=== PATIENT | female | born 1940 | race Caucasian/White ===

== ENCOUNTER → 2016-09-20 | Outpatient (CLI) | payer OTHER | LOC: FIMAGING 13:14 | DX: Z12.31 Encounter for screening mammogram for malignant neoplasm of breast (principal); Z85.3 Personal history of malignant neoplasm of breast; Z92.3 Personal history of irradiation | CPT/HCPCS: G0202 ==

== ENCOUNTER → 2017-02-25 | Outpatient (CLI) | payer OTHER | LOC: BMCIMAGING 11:12 | PROVIDERS: ATTEND Internal Medicine Hematology & Oncology | DX: Z13.820 Encounter for screening for osteoporosis (principal); C50.412 Malignant neoplasm of upper-outer quadrant of left female breast; Z17.0 Estrogen receptor positive status [ER+] ==

== ENCOUNTER → 2017-02-28 | Outpatient (CLI) | payer OTHER | LOC: BMCIMAGING 07:15 | PROVIDERS: ATTEND Internal Medicine | DX: K80.20 Calculus of gallbladder without cholecystitis without obstruction (principal); K76.0 Fatty (change of) liver, not elsewhere classified; R16.0 Hepatomegaly, not elsewhere classified; N28.1 Cyst of kidney, acquired ==

== ENCOUNTER 2017-06-30 11:09 | Emergency (ER) | payer OTHER ==
[2017-06-30 11:25] VITALS: RESP 16
--- NOTE | 2017-06-30 12:40 | EDPHY ---
H & P Stated Complaint: neck pain Time Seen by Provider: 06/30/17 12:40 Source: Patient Exam Limitations: No limitations - Personal History Current Tetanus Diphtheria and Acellular Pertussis (TDAP): Yes - Medical/Surgical History Hx Asthma: No Hx Chronic Respiratory Disease: No Hx Diabetes: No Hx Cardiac Disease: No Hx Renal Disease: No Hx Cirrhosis: No Hx Alcoholism: No Hx HIV/AIDS: No Hx Splenectomy or Spleen Trauma: No Other PMH: multiple neck surgeries, L br ca, rotator cuff surgery, cataracts, hyst - Social History Smoking Status: Former smoker Constitutional: Initial Vital Signs Temperature (C) 37 C 06/30/17 11:20 Heart Rate 82 06/30/17 11:20 Respiratory Rate 16 06/30/17 11:20 Blood Pressure 155/72 H 06/30/17 11:20 O2 Sat (%) 92 06/30/17 11:20 O2 Delivery Mode Room Air Allergies/Adverse Reactions: erythromycin base [Erythromycin Base] Allergy (Intermediate, Verified 02/28/11 10:36) Hives MINT Allergy (Intermediate, Uncoded 02/28/11 10:36) Hives VINEGAR Allergy (Intermediate, Uncoded 02/28/11 10:42) Hives WINE Allergy (Intermediate, Uncoded 02/28/11 10:36) Hives Home Medications: Medication Instructions Recorded methylPREDNISolone [Medrol Dose 1 each PO AD #1 ea 06/30/17 Denzel] oxyCODONE IR [Oxycodone Ir (*)] 5 - 10 mg PO Q6 PRN #20 tab 06/30/17 Medical Decision Making - Diagnostics Imaging: Discussed imaging studies w/ scallop shucker Radiologist ED Course/Re-evaluation: CHIEF COMPLAINT: Neck pain HISTORY OF PRESENT ILLNESS: The patient is a 77-year-old female with prior neck surgery 5-[address] Wild. She presents today with acute neck pain after coughing violently. The patient had influenza a few days ago with a cough. After coughing yesterday she developed severe neck pain. She is unable to move her head from side to side due to the pain. Her pain radiates into her shoulder. She denies upper or lower extremity paresthesia. REVIEW OF SYSTEMS: A 10 point review of systems was performed and is negative with the exception of the elements mentioned in the history of present illness. PHYSICAL EXAM: HR, BP, O2 Sat, RR. Temp noted General Appearance: Alert, well hydrated, appropriate, and non-toxic appearing. Head: Atraumatic without scalp tenderness or obvious injury Eyes: Pupils equal, round, reactive to light and accommodation, EOMI, no trauma , no injection. Ears: Clear bilaterally, no perforation, normal landmarks Nose: Atraumatic, no rhinorrhea, clear. Throat: There is no erythema or exudates, no lesions, normal tonsils, mucus membranes moist. Neck: Soft tissue tenderness, no radiculopathy. Respiratory: No retractions, no distress, no wheezes, and no accessory muscle use. Lungs are clear to auscultation bilaterally. Cardiovascular: Regular rate and rhythm, no murmurs, rubs, or gallops. Bilateral carotid, radial, dorsalis pedis, and posterior tibial pulses intact. Good capillary refill all extremities. Gastrointestinal: Abdomen is soft, nontender, non-distended, no masses, no rebound, no guarding, no peritoneal signs. Musculoskeletal: Normal active ROM of all extremities, atraumatic. Neurological: Alert, appropriate, and interactive. The patient has normal DTRs and non-focal cranial nerves, motor, sensory, and cerebellar exam. Skin: No rashes, good turgor, no nodules on palpation. Past medical history: Denies. Past surgical history: Cervical fusions, Hysterectomy Family history: Noncontributory. Social history: . at bedside. DIAGNOSTICS/PROCEDURES/CRITICAL CARE TIME: MRI cervical spine is normal per the radiologist report. Please see imaging section for full report. DIFFERENTIAL DIAGNOSIS: The differential diagnosis for the patient's neck pain included but was not limited to musculo-skeletal pain, herniated disk, spinal fracture, trauma. MEDICAL DECISION MAKING: Patient with history of neck surgery 5-6 years ago presents with acute neck pain that developed after coughing. The patient has severe neck pain that is worse with movement. She has radiation into her scapula. No radiculopathy. Plan for MRI with contrast because of prior neck surgery. The patient's MRI is negative. Her pain is likely musculoskeletal vs neurological. I recommend the patient follow up with her neurosurgeon, Dr. Wild. Plan to discharge the patient home with Oxycodone for severe pain and Medrol dose pain to help with inflammation. Departure - Departure Disposition: Home, Routine, Self-Care Clinical Impression: Musculoskeletal neck pain Condition: Good Instructions: Acute Neck Pain (ED) Additional Instructions: Take pain medication as directed for severe pain. Take the Medrol dose pack as directed. I recommend you follow up with your neurosurgeon if pain persists. Referrals: Diann Glass MD [Primary Care Provider] - As per Instructions Guy De La Paz MD [Medical Doctor] - As per Instructions (Neurolsurgeon) Prescriptions: methylPREDNISolone [Medrol Dose Denzel] 1 each PO AD #1 ea oxyCODONE IR [Oxycodone Ir (*)] 5 - 10 mg PO Q6 PRN #20 tab PRN Reason: Pain, Severe Report Scribed for: Rod Choi Report Scribed by: Dee Dee Jeong Date of Report: 06/30/17 Time of Report: 14:48
[2017-06-30] MEDS ORDERED: GADOBUTROL 10 ML VIAL IVP ONE (13:24)
[2017-06-30] MEDS ORDERED: OXYCODONE/APAP 5/325 TAB PO ONE (14:56)
[2017-06-30] MEDS ORDERED: OXYCODONE/APAP 5/325 TAB ONE (14:56)
[2017-06-30 15:05] VITALS: BP 131/67; PULSE 74; TEMP 98.4; O2SAT 90
== END 2017-06-30 15:04 | disposition home or self-care (01) ==
DX: M54.2 Cervicalgia (principal); Z87.891 Personal history of nicotine dependence
CPT/HCPCS: 72156; 99285; A9585

== ENCOUNTER 2017-07-11 17:24 | Emergency (ER) | payer OTHER ==
[2017-07-11 17:37] VITALS: TEMP 97.9; O2SAT 92
--- NOTE | 2017-07-11 18:21 | EDPHY ---
H & P Time Seen by Provider: 07/11/17 18:02 HPI/ROS: CHIEF COMPLAINT: Right groin pain HISTORY OF PRESENT ILLNESS: Patient got the flu in June 21 and was seen here on June 30 with a continued cough and some neck pain. She was treated with steroids after negative MRI was having trouble moving and really trying to twist and pulled herself out of bed. Starting on this past week on Saturday she started developing pain in her right groin which is not present at rest but is severe any time she tries to lift up her leg or flex her hip. When that happened she has pain in the proximal thigh radiating into her suprapubic region. This is not associated with urinary symptoms or vomiting or diarrhea. No skin rash. Really not present at rest but severe with trying to flex her hip. REVIEW OF SYSTEMS: Eye: no change in vision ENT: no sore throat Cardiac: no chest pain or syncope Pulmonary: no cough or SOB Abdomen: no vomiting, diarrhea, abdominal pain Musculoskeletal: HPI Skin: no rash Neuro: No weakness or numbness in foot or ankle. Constitutional: no fever : no urinary symptoms A comprehensive 10 point review of systems is otherwise negative aside from elements mentioned in the history of present illness. PAST MEDICAL HISTORY: Includes cervical and lumbar spine surgeries, breast cancer, rotator cuff surgery, hysterectomy Social history: here with spouse lives independently General Appearance: Alert and conversant, cooperative. Eyes: No scleral icterus. ENT, Mouth: Normal mucous membranes. Respiratory: Normal respiratory effort, breath sounds equal, lungs are clear to auscultation. Cardiovascular: Regular rate and rhythm. Gastrointestinal: Abdomen is soft and non tender. She does not have McBurney' s point tenderness. She does not have inguinal hernia. No rebound or guarding. Neurological: Alert, face symmetric, normal motor and sensory in extremities. Patellar reflexes 2+ symmetric, straight leg raising negative bilaterally, toes downgoing, no clonus. Skin: Warm and dry, no rashes. Musculoskeletal: Patient has a little bit of proximal right groin and hip flexor tenderness. She has a little bit of tenderness over her superior pubic ramus. Her symptoms are reproduced when she tries to flex her hip her hold her leg up off the bed against resistance. No bony tenderness on the pelvis and no hip pain with rotation or axial loading. Psychiatric: Not agitated. Emergency Department course/MDM: The patient has a acute right groin muscle strain likely from altered activity when she had neck pain from last week. I do not think it is likely that she has acute surgical abdominal process or hernia or incarcerated hernia or hip fracture or spinal cord problem. Patient wants to go home and has helped by Tylenol and is been tolerating Vicodin okay. Lidocaine patch. 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 Smoking Status: Former smoker Constitutional: Initial Vital Signs Temperature (C) 36.6 C 07/11/17 17:35 Heart Rate 88 07/11/17 17:35 Respiratory Rate 18 07/11/17 17:35 Blood Pressure 176/116 H 07/11/17 17:35 O2 Sat (%) 92 07/11/17 17:35 O2 Delivery Mode Room Air Allergies/Adverse Reactions: erythromycin base [Erythromycin Base] Allergy (Intermediate, Verified 07/11/17 17:31) Hives MINT Allergy (Intermediate, Uncoded 02/28/11 10:36) Hives VINEGAR Allergy (Intermediate, Uncoded 02/28/11 10:42) Hives WINE Allergy (Intermediate, Uncoded 02/28/11 10:36) Hives Home Medications: Medication Instructions Recorded Anastrozole 07/11/17 Dyazide 37.5/25 (*) 07/11/17 Hydrocodone/Acetaminophen [Vicodin 1 each PO Q6 PRN #11 tablet 07/11/17 5-300 mg Tablet] Lidocaine 5% [Lidoderm 5% Patch 1 ea TD DAILY #7 patch 07/11/17 (*)] Lipitor 07/11/17 Nabumetone 07/11/17 Omeprazole 07/11/17 Qvar 07/11/17 Synthroid 07/11/17 Vicodin 5-300 mg Tablet 07/11/17 MDM/Departure - Depart Disposition: Home, Routine, Self-Care Clinical Impression: Strain of muscle of right groin region Condition: Good Instructions: Muscle Strain (ED) Additional Instructions: Remove the lidocaine patch placed in the emergency department tomorrow morning. Contact your primary care provider tomorrow to follow up on possible home physical therapy visit. Tylenol as we discussed every 8 hr orally as needed for pain. You can use the additional pain medication Vicodin for severe pain, but do not take with Tylenol. You can also try lidocaine patch as prescribed. Prescriptions: Hydrocodone/Acetaminophen [Vicodin 5-300 mg Tablet] 1 each PO Q6 PRN #11 tablet PRN Reason: pain Lidocaine 5% [Lidoderm 5% Patch (*)] 1 ea TD DAILY #7 patch Referrals: Diann Glass MD [Primary Care Provider] - 3-4 days, if not improved
[2017-07-11] MEDS ORDERED: LIDOCAINE 5% 1 EA PATCH TD ONE (18:23)
[2017-07-11 18:46] VITALS: BP 138/70; PULSE 16; RESP 76
[2017-07-11] MEDS ORDERED: PATCH REMOVAL 1 EA PATCH TD SCH (21:00)
--- NOTE | 2017-07-12 09:42 | ASMTLACE ---
JUNIOR Acuity / Level of Answers: No Care: Did the patient have an inpatient admission? Comorbidities - select Answers: Any tumor (including all that apply lymphoma or leukemia) # of Emergency department Answers: 1-2 visits in the last 6 months Score: 3 Date Signed: 07/12/2017 09:41 AM Electronically Signed By:Hue Rodríguez RN
--- NOTE | 2017-07-12 10:04 | ASMTCMCOM ---
CM Note CM Note Notes: Patient presented to the ER last night with c/o R groin pain which she believes is related to recent coughing/straining while having the flu. She came into the ER on 06/30/17 as well for neck pain/strain, also "due to coughing". Patient is accompanied by her Clifford. They live independently in a home with 17 steps between the first and second floor. Patient has a walker at home that she is using due to this groin discomfort but admits that she has been sliding down the stairs "on her bum" if/when she needs to get downstairs. She is hopeful that she will recover from this "strain" within a few days and is hesitant to consider any HH for PT or safety evaluation. We talked about the possibility of non medical HH services for a couple hours a day while Clifford is at work and patient did accept a pamphlet for '[facility]'. Patient agrees to plan for me to check in with her in the morning at home to see how she is doing. I have contacted pateint today 07/12/17 0930. She tells me that she would prefer to wait and see how she is doing over the weekend before considering any kind of HH services. She assures me that she can and will reach out for help if she needs it, but feels she is doing okay. Patient agrees to this CM contacting her PCP, Dr. Diann Glass at [facility] [place] to inform her of patient's ER visit and plans to follow up with Dr. Glass on Saturday. Plan: Patient will reach out to this CM today if she decides she would like some assistance over the weekend. Otherwise, patient will follow up with her PCP on Saturday. This CM has left a VM with Dr. Glass's MA/RN regarding patient's ER visit and plans for follow up Date Signed: 07/12/2017 10:03 AM Electronically Signed By:Hue Rodríguez RN
--- NOTE | 2017-07-15 13:21 | ASMTCMCOM ---
CM Note CM Note Notes: Requested to follow up with patient and inform her that her insurance will not cover the prescribed Lidocaine 5% patches that she received from the ED, but to make sure she is aware that there are 4% Lidocaine patches available for purchase OTC. Spoke with patient ([phone]) and she says she already has purchased the OTC 4% Lidocaine patches. We discussed how she is doing and if she followed up with her PCP Dr Glass. Patient states she has spoke to Dr Glass's office twice since last week and feel she doesn't need to make an appt at this time. She plans to continue to rest for the next week or so and see how it goes. Patient aware she can call CM for further assistance if needed. Date Signed: 07/15/2017 01:20 PM Electronically Signed By:Janay Taylor RN
== END 2017-07-11 18:45 | disposition home or self-care (01) ==
DX: S39.011A Strain of muscle, fascia and tendon of abdomen, initial encounter (principal); Z85.3 Personal history of malignant neoplasm of breast; Z87.891 Personal history of nicotine dependence; Z90.710 Acquired absence of both cervix and uterus; X58.XXXA Exposure to other specified factors, initial encounter

== ENCOUNTER → 2017-08-01 | Outpatient (CLI) | payer OTHER | LOC: BMCIMAGING 14:58 | PROVIDERS: ATTEND Internal Medicine | DX: M16.0 Bilateral primary osteoarthritis of hip (principal); M51.36 Other intervertebral disc degeneration, lumbar region ==

== ENCOUNTER → 2017-09-21 | Outpatient (CLI) | payer OTHER | LOC: FIMAGING 09:46 | PROVIDERS: ATTEND Internal Medicine Hematology & Oncology | DX: Z12.31 Encounter for screening mammogram for malignant neoplasm of breast (principal) ==

== ENCOUNTER → 2018-09-23 | Outpatient (CLI) | payer OTHER | LOC: FIMAGING 11:57 | PROVIDERS: ATTEND Internal Medicine Hematology & Oncology | DX: Z12.31 Encounter for screening mammogram for malignant neoplasm of breast (principal); Z85.3 Personal history of malignant neoplasm of breast ==